=== PATIENT | male | born 1975 | race Caucasian/White ===

== ENCOUNTER 2021-05-09 20:29 | Emergency (ER) | payer BC ==
[~2021-05-09] VITALS: Ht 175.3 cm; Wt 86.2 kg
[2021-05-09 20:35] VITALS: BP_SYST 122
--- NOTE | 2021-05-09 20:35 | NUR ---
Placed in room 02 . [address] on [address] monitor, blood pressure machine and pulse oximeter. To gown for exam. Side rails up. Report given to LUIS Murphy
[2021-05-09] MEDS ORDERED: NALOXONE HCL 2 MG/2 ML SYR IVP ONE (20:45)
[2021-05-09] MEDS ORDERED: NACL 0.9% 2,000 ML IV ONE (20:45)
--- NOTE | 2021-05-09 21:20 | NUR ---
JESSICA Brink at bedside examining patient.
[2021-05-09 21:34] LABS: CALCIUM 7.9 mg/dL (8.4-11.0); CREATININE 1.27 mg/dL (0.55-1.30); POTASSIUM 3.9 mmol/L (3.5-5.1)
[2021-05-09 21:39] LABS: ALBUMIN 3.3 g/dL (3.4-4.8); TOTAL BILIRUBIN 0.2 mg/dL (0.0-1.0)
[2021-05-09 21:41] LABS: INR 0.9 (0.80-1.20); PROTHROMBIN TIME 9.3 SECS (9.5-12.5)
[2021-05-09] MEDS ORDERED: THIAMINE HCL 100 MG in NS 50 ML IV ONE (22:30)
[2021-05-09] MEDS ORDERED: INSULIN NPH/REGULAR 70-30, 100 UNITS/ML, 10 ML VIAL SUBCUT ONE (22:30)
[2021-05-09] MEDS ORDERED: THIAMINE HCL 100 MG/ML VIAL ONE (22:47)
--- NOTE | 2021-05-09 22:50 | NUR ---
Patient removed IV to right hand at this time. only current access is right AC
[2021-05-09 23:14] LABS: BASOPHILS % (AUTO) 0.8 % (0.0-2.0); EOSINOPHILS # (AUTO) 0.1 K/uL (0.0-0.4); EOSINOPHILS % (AUTO) 2.1 % (0.0-4.0); HEMATOCRIT 44.3 % (36-54); HEMOGLOBIN 15.1 g/dL (14.0-18.0); LYMPHOCYTES # (AUTO) 2.5 K/uL (1.0-5.5); LYMPHOCYTES % (AUTO) 45.4 % (20.5-51.5); MEAN CORPUSCULAR HEMOGLOBIN 32 pg (27-31); MEAN CORPUSCULAR HGB CONC 34 % (32-36); MEAN CORPUSCULAR VOLUME 94 fL (79.0-98.0); MONOCYTES # (AUTO) 0.3 K/uL (0.0-1.0); NEUTROPHILS # (AUTO) 2.5 K/uL (1.8-7.7); NEUTROPHILS % (AUTO) 45.7 % (40.0-70.0); PLATELET COUNT (AUTO) 168 K/uL (130-430); RED BLOOD CELL COUNT(AUTO) 4.73 MIL/uL (4.2-6.2); RED CELL DISTRIBUTION WIDTH 13.2 % (9.0-15.0); WHITE BLOOD COUNT (AUTO) 5.4 K/uL (4.8-10.8)
--- NOTE | 2021-05-10 01:33 | NUR ---
Patient sleeping at this tiem. still arousable with verbal stimulus and follows commands. speech is slurred when conversation attempts are made suggestive of etoh
--- NOTE | 2021-05-10 04:45 | NUR ---
Patient currently awake and fully oriented. Patient given written and verbal discharge instructions and verbalizes understanding. ER MD discussed with patient the results and treatment provided. Patient in stable condition. ID arm band removed. IV catheter removed intact and dressing applied, no active bleeding. Rx not given. Patient educated on pain management and to follow up with PMD. Pain Scale . Opportunity for questions provided and answered. Medication side effect fact sheet provided.
[2021-05-10 04:46] VITALS: BP_SYST 119
== END 2021-05-10 04:45 | disposition home or self-care (01) ==
LOC: SED 20:29 → EDBD 20:29 → SED 05-10 04:45
DX: G93.41 Metabolic encephalopathy (principal); F10.129 Alcohol abuse with intoxication, unspecified; R41.82 Altered mental status, unspecified; R73.9 Hyperglycemia, unspecified; I49.9 Cardiac arrhythmia, unspecified; Y90.8 Blood alcohol level of 240 mg/100 ml or more
CPT/HCPCS: 36415; 70450; 71045; 76376; 80053; 83605; 83930; 84484; 85025; 85610; 85730; 87040; 93005; 96361; 96365; 96372; 96375; 99285; G0482; J1815; J2310; J3411; J7030